=== PATIENT | female | born 1980 | race Caucasian/White ===

== ENCOUNTER → 2019-07-22 | Outpatient (CLI) | payer BC ==
[~2019-07-22] MED LIST: CITA20; CITA20 PO; CYCL10 PO; Celexa10 MG PO; DILT30; DILT30 PO; FAMO20 PO; HYDACE5 PO; HYDMOR4 PO; LEVSOD25; LORA.5 PO; MARIJUANA; METO10 PO; NORT10 PO; Nortriptyline H50 MG PO; OMEP20ER PO; ONDA4ODT MM; ONDA4ODT PO; ONDA8ODT MM; OXYACE5T PO; PROM25 PO; PROM25S PR; SUCR1 PO; TAZORAC TP; TRAM50; TRAM50 PO; VENL37.5 PO; VENL75ER PO
[2019-07-25 15:07] LABS: HPV 16 Negative (Negative); HPV 18 Negative (Negative); HPV OTHER HR TYPES Negative (Negative)
== END | disposition home or self-care (01) ==
LOC: LAB SHORT 15:55 → LAB 15:55
PROVIDERS: Advanced Practice Midwife
DX: Z01.419 Encounter for gynecological examination (general) (routine) without abnormal findings (principal)
CPT/HCPCS: 87624; G0123

== ENCOUNTER 2020-07-26 20:14 | Emergency (ER) | payer BC ==
[~2020-07-26] VITALS: Ht 165.1 cm; Wt 63.5 kg
[2020-07-26 21:23] LABS: BASOPHILS ABSOLUTE AUTO 0.03 K/mm3 (0.00-0.23); BASOPHILS PERCENT AUTO 0 % (0-2); EOSINOPHILS ABSOLUTE AUTO 0.09 K/mm3 (0.00-0.68); EOSINOPHILS PERCENT AUTO 1 % (0-6); Hematocrit 33.6 % (33.0-51.0); Hemoglobin 11.3 g/dL (11.5-16.0); IMMATURE GRAN ABSOLUTE AUTO 0.01 K/mm3 (0.00-0.10); IMMATURE GRAN PERCENT AUTO 0 % (0-1); LYMPHOCYTES ABSOLUTE AUTO 1.35 K/mm3 (0.84-5.20); LYMPHOCYTES PERCENT AUTO 20 % (21-46); MONOCYTES ABSOLUTE AUTO 0.55 K/mm3 (0.16-1.47); MONOCYTES PERCENT AUTO 8 % (4-13); Mean Corpuscular HGB 28.8 pg (26.0-34.0); Mean Corpuscular HGB Conc 33.6 g/dL (31.5-36.5); Mean Corpuscular Volume 86 fL (80-100); Mean Platelet Volume 10.6 fL (9.1-12.4); NEUTROPHILS ABSOLUTE AUTO 4.68 K/mm3 (1.96-9.15); NEUTROPHILS PERCENT AUTO 70 % (41-73); Platelet Count 300 K/mm3 (150-400); RDW Coefficient Variation 12.8 % (11.7-14.2); RDW Standard Deviation 39.6 fL (35.1-46.3); Red Blood Cell Count 3.92 M/mm3 (3.80-5.20); White Blood Cell Count 6.71 K/mm3 (4.00-11.30)
[2020-07-26 21:44] LABS: Alanine Aminotransfer (ALT/SGP 15 U/L (12-78); Albumin/Globulin Ratio 1.2 (0.8-1.8); Alk Phos 61 U/L (50-136); Anion Gap 4 mmol/L (6-16); Aspartate Aminotrans (AST/SGOT 14 U/L (12-37); Bilirubin, Total 0.3 mg/dL (0.1-1.0); Blood Urea Nitrogen 14 mg/dL (8-24); Bun/Creatinine Ratio 18.3 (12.0-20.0); CO2, Blood 27 mmol/L (21-32); Calcium, Blood 8.8 mg/dL (8.5-10.1); Chloride, Blood 106 mmol/L (98-108); Creatinine, Blood 0.77 mg/dL (0.40-1.00); Globulin, Blood 3.3 g/dL (2.2-4.0); Glomerular Filtration Rate >60 (60-); Glucose, Blood 113 mg/dL (70-99); Potassium, Blood 3.5 mmol/L (3.5-5.5); Sodium, Blood 137 mmol/L (136-145); Total Protein, Blood 7.3 g/dL (6.4-8.2); Troponin I <0.015 ng/mL (0.000-0.040)
== END 2020-07-26 22:56 | disposition home or self-care (01) ==
LOC: ER 20:14
PROVIDERS: Physician Assistant
DX: R07.9 Chest pain, unspecified (principal)
CPT/HCPCS: 36415; 71046; 80053; 84484; 85025; 93005; 93010; 99285-25

== ENCOUNTER 2020-08-15 21:16 | Emergency (ER) | payer BC ==
[~2020-08-15] VITALS: Ht 165.1 cm; Wt 63.5 kg
[2020-08-15] MEDS ORDERED: XANAX0.25 MG PO (23:42)
[2020-08-15] MEDS ORDERED: CLOB.05TO (23:42)
[2020-08-15] MEDS ORDERED: METPRE4DP PO (23:48)
[2020-08-15] MEDS ORDERED: IBUP600 PO (23:48)
== END 2020-08-16 00:41 | disposition home or self-care (01) ==
LOC: ER 21:16
DX: M54.12 Radiculopathy, cervical region (principal)
CPT/HCPCS: 93005; 93010; 99283-25

== ENCOUNTER 2021-12-10 06:41 | Inpatient (IN) | payer BC ==
[~2021-12-10] VITALS: Ht 165.1 cm; Wt 65.8 kg
[~2021-12-10 06:41] MED LIST changes: +CLOB.05TO; +IBUP600 PO; +METPRE4DP PO; +PROM12.5S PR; +XANAX0.25 MG PO
[2021-12-10] MEDS ORDERED: ONDA4ODT PO (07:01)
[2021-12-10] MEDS ORDERED: ESCI10 (07:01)
[2021-12-10] MEDS ORDERED: PROM12.5S (07:01)
[2021-12-10 08:51] LABS: Influenza A, PCR NEGATIVE (NEGATIVE); Influenza B, PCR NEGATIVE (NEGATIVE); Resp Syncytial Virus, PCR NEGATIVE (NEGATIVE); SARS-Cov-2 (COVID-19) PCR, MMC NEGATIVE (NEGATIVE)
[2021-12-10 08:56] LABS: BASOPHILS ABSOLUTE AUTO 0.02 K/mm3 (0.00-0.23); BASOPHILS PERCENT AUTO 0 % (0-2); EOSINOPHILS PERCENT AUTO 0 % (0-6); Hematocrit 35.3 % (33.0-51.0); Hemoglobin 11.9 g/dL (11.5-16.0); IMMATURE GRAN ABSOLUTE AUTO 0.07 K/mm3 (0.00-0.10); IMMATURE GRAN PERCENT AUTO 1 % (0-1); LYMPHOCYTES ABSOLUTE AUTO 0.93 K/mm3 (0.84-5.20); LYMPHOCYTES PERCENT AUTO 8 % (21-46); MONOCYTES ABSOLUTE AUTO 0.49 K/mm3 (0.16-1.47); MONOCYTES PERCENT AUTO 4 % (4-13); Mean Corpuscular HGB 28.8 pg (26.0-34.0); Mean Corpuscular HGB Conc 33.7 g/dL (31.5-36.5); Mean Corpuscular Volume 86 fL (80-100); Mean Platelet Volume 10.7 fL (9.1-12.4); NEUTROPHILS ABSOLUTE AUTO 10.21 K/mm3 (1.96-9.15); NEUTROPHILS PERCENT AUTO 87 % (41-73); Platelet Count 347 K/mm3 (150-400); RDW Coefficient Variation 13.1 % (11.7-14.2); RDW Standard Deviation 40.7 fL (35.1-46.3); Red Blood Cell Count 4.13 M/mm3 (3.80-5.20); White Blood Cell Count 11.72 K/mm3 (4.00-11.30)
[2021-12-10 09:15] LABS: Albumin, Blood 4.3 g/dL (3.4-5.0); Albumin/Globulin Ratio 1.2 (0.8-1.8); Bilirubin, Total 0.7 mg/dL (0.1-1.0); Bun/Creatinine Ratio 22.3 (12.0-20.0); Calcium, Blood 9.6 mg/dL (8.5-10.1); Creatinine, Blood 0.72 mg/dL (0.40-1.00); Globulin, Blood 3.5 g/dL (2.2-4.0); Potassium, Blood 2.7 mmol/L (3.5-5.5); Total Protein, Blood 7.8 g/dL (6.4-8.2)
[2021-12-10 13:15] LABS: Calcium, Ionized (POC) 1.03 mmol/L (1.10-1.46); Chloride (POC) 105 mmol/L (98-108); Creatinine (POC) 0.4 mg/dL (0.6-1.0); Glucose (ISTAT POC) 107 mg/dL (70-99); Hemoglobin (POC) 10.5 g/dL (12.0-16.0); Potassium (POC) 3.1 mmol/L (3.5-5.5); Sodium (POC) 140 mmol/L (135-148); Total CO2 (POC) 20 mmol/L (21-32)
[2021-12-10 16:34] LABS: Source, Urine Clean Catch
[2021-12-10 16:40] LABS: Appearance, Urine Clear (Clear); Bilirubin, Urine Neg (Neg); Blood, Urine Neg (Neg); Glucose Qualitative, Urine Neg (Neg); Ketones, Urine 3+ (Neg); Leukocyte Esterase, Urine Neg (Neg); Nitrite, Urine Neg (Neg); Protein, Urine Neg (Neg); Urobilinogen, Urine NORM (Normal)
[2021-12-10 16:44] LABS: Color, Urine Pale Yellow (P-Yellow)
--- NOTE | 2021-12-10 18:41 | NUR ---
REPORT RECEIVED FROM DIMPLE SILVA IN ER. PT ADMITTED TO ROOM 358 AT 1830. PT TRANSPORTED VIA . PT REPORTED SHE STILL FELT NAUSEATED BUT VOMITING CONTROLLED AT THIS TIME. SHE REQUESTED TO WAIT ON TAKING POTASSIUM SUPPLEMENT.PT ORIENTED TO ROOM/CALL LIGHT/FALL PRECAUTIONS. WARM BLANKETS PROVIDED PER REQUEST. STARTED LR PER ORDER.
--- NOTE | 2021-12-10 19:30 | NUR ---
RECEIVED BEDSIDE REPORT. PT LYING ON BED WITH EYES CLOSED, MOTHER AT BEDSIDE. IVF INFUSING. ON RA. NO NEEDS AT THIS TIME. WILL CONTINUE TO PROVIDE CARE T/O SHIFT. CALL LT IN REACH.
--- NOTE | 2021-12-10 21:48 | NUR ---
PT TOLERATED ANTIVERT PO AFTER ZOFRAN IV GIVEN. DID REPORT SOME NAUSEA, UNABLE TO TAKE ORAL POTASSIUM. HOSPITALIST CALLED AND NEW ORDER FOR IV POTASSIUM RECEIVED.
[2021-12-10 22:31] LABS: U Amphetamine Screen Not Detected; U Barbituate Screen Not Detected; U Benzodiazapine Screen Not Detected; U Buprenorphine Screen Not Detected; U Cannabinoids Screen DETECTED; U Cocaine Screen Not Detected; U Methadone Screen Not Detected; U Methamphetamine Screen Not Detected; U Opiates Screen Not Detected; U Oxycodone Screen Not Detected; U Phencyclidine Screen Not Detected; U Propoxyphene Screen Not Detected
--- NOTE | 2021-12-10 22:37 | NUR ---
PT DID NOT TOLERATE PO POTASSIUM. NEW ORDER RECEIVED FOR POTASSIUM CHLORIDE IV. PT TOLERATING INFUSION. CALL LT IN REACH.
--- NOTE | 2021-12-11 00:08 | NUR ---
PT RESTING QUIETLY. IVF INFUSING. CALL LT IN REACH.
--- NOTE | 2021-12-11 01:17 | NUR ---
PT STATES STILL FEELING A LITTLE DIZZY WHEN UP IN ROOM. STATES LEFT EAR STILL PLUGGED UP. MORE NAUSEOUS AFTER GETTING UP TO THE BATHROOM. REGLAN GIVEN IV. WILL REASSESS NAUSEA. IVF INFUSING. CALL LT IN REACH.
--- NOTE | 2021-12-11 02:02 | NUR ---
PT RESTING QUIETLY. IVF INFUSING. CALL LT IN REACH.
--- NOTE | 2021-12-11 02:53 | NUR ---
MEDICATED PT FOR NAUSEA AFTER BEING UP IN ROOM. NO OTHER NEEDS AT THIS TIME. CALL LT IN REACH.
--- NOTE | 2021-12-11 04:22 | NUR ---
PT RESTING. IVF INFUSING. NO NEEDS. CALL LT IN REACH.
--- NOTE | 2021-12-11 04:35 | NUR ---
SHIFT SUMMARY: MEDICATED PT X 3 FOR NAUSEA. NO EMESIS THIS SHIFT. NPO. KRIDER OF 40 MEQ GIVEN. LR INFUSING AT 100 MLS/HR, WILL RECEIVE ONE MORE BAG THEN SALINE LOCK. NO COMPLAINTS OF PAIN. A/O. INDEP IN RM. ON RA. WILL CONTINUE TO PROVIDE CARE UNTIL SHIFT REPORT.
[2021-12-11 04:36] LABS: BASOPHILS ABSOLUTE AUTO 0.01 K/mm3 (0.00-0.23); BASOPHILS PERCENT AUTO 0 % (0-2); EOSINOPHILS PERCENT AUTO 0 % (0-6); Hematocrit 32.1 % (33.0-51.0); IMMATURE GRAN ABSOLUTE AUTO 0.05 K/mm3 (0.00-0.10); IMMATURE GRAN PERCENT AUTO 1 % (0-1); LYMPHOCYTES ABSOLUTE AUTO 1.18 K/mm3 (0.84-5.20); LYMPHOCYTES PERCENT AUTO 12 % (21-46); MONOCYTES ABSOLUTE AUTO 0.71 K/mm3 (0.16-1.47); MONOCYTES PERCENT AUTO 7 % (4-13); Mean Corpuscular HGB 29.1 pg (26.0-34.0); Mean Corpuscular HGB Conc 34.3 g/dL (31.5-36.5); Mean Corpuscular Volume 85 fL (80-100); Mean Platelet Volume 10.5 fL (9.1-12.4); NEUTROPHILS ABSOLUTE AUTO 8.33 K/mm3 (1.96-9.15); NEUTROPHILS PERCENT AUTO 81 % (41-73); Platelet Count 293 K/mm3 (150-400); RDW Coefficient Variation 12.8 % (11.7-14.2); RDW Standard Deviation 39.2 fL (35.1-46.3); Red Blood Cell Count 3.78 M/mm3 (3.80-5.20); White Blood Cell Count 10.28 K/mm3 (4.00-11.30)
[2021-12-11 04:58] LABS: Albumin, Blood 3.4 g/dL (3.4-5.0); Bilirubin, Total 0.7 mg/dL (0.1-1.0); Bun/Creatinine Ratio 16.4 (12.0-20.0); Calcium, Blood 8.1 mg/dL (8.5-10.1); Creatinine, Blood 0.49 mg/dL (0.40-1.00); Globulin, Blood 3.4 g/dL (2.2-4.0); Total Protein, Blood 6.8 g/dL (6.4-8.2)
--- NOTE | 2021-12-11 05:32 | NUR ---
SECOND BAG OF LR HUNG AT 100 MLS/HR.
--- NOTE | 2021-12-11 16:01 | NUR ---
SHIFT SUMMARY PT RESTING QUIETLY DURING SHIFT REPORT, IVF'S INFUSING PER EMAR. PT MEDICATED ON NOC SHIFT FOR C/O NAUSEA AND L EAR BEING PLUGGED. K+ LEVEL LOW THIS AM; SEE CHART. PT UNABLE TO TOLERATE PO; IV KCL ORDERED AND STARTED. DR HERNÁNDEZ AND DR MARQUIS BOTH HERE TO SEE PT. NEW ORDERS PLACED. EKG DONE AND PT TAKEN DOWN FOR HEAD CT. IVF'S AND KCL STOPPED BRIEFLY; RESTARTED WHEN PT RETURNED. IV SITE SOON STARTED LEAKING AFTER THAT. NEW IV PLACED TO AND IVF'S RUNNING CONCURRENTLY WITH KCL, BUT PT UNABLE TO TOLERATE EVEN AT REDUCED RATE. DR MARQUIS NOTIFIED AND NEW ORDERS PLACED. PT ONLY ABLE TO TOLERATE 1/2 OF PO K+ ORDERED; SEE EMAR. DR MARQUIS NOTIFIED AGAIN. 2ND BAG OF IV KCL STARTED AT REDUCED RATE, CONCURRENTLY WITH IVF'S. PT HAS BEEN UP TO BTHRM INDEPENDENTLY AND WITH SBA NEEDED. MEDICATED FOR C/O NAUSEA X1 TO PRESENT. PT'S MOM AT BS. TOLERATED SIPS OF ICE WATER. RESTING QUIETLY AT THIS TIME. CALL LT IN REACH.
[2021-12-12 04:49] LABS: Hematocrit 35.2 % (33.0-51.0); Hemoglobin 12.4 g/dL (11.5-16.0); Mean Corpuscular HGB 29.3 pg (26.0-34.0); Mean Corpuscular HGB Conc 35.2 g/dL (31.5-36.5); Mean Corpuscular Volume 83 fL (80-100); Mean Platelet Volume 10.7 fL (9.1-12.4); Platelet Count 343 K/mm3 (150-400); RDW Coefficient Variation 12.5 % (11.7-14.2); RDW Standard Deviation 38.2 fL (35.1-46.3); Red Blood Cell Count 4.23 M/mm3 (3.80-5.20); White Blood Cell Count 9.79 K/mm3 (4.00-11.30)
[2021-12-12 05:19] LABS: Bun/Creatinine Ratio 18.2 (12.0-20.0); Calcium, Blood 9.1 mg/dL (8.5-10.1); Creatinine, Blood 0.5 mg/dL (0.40-1.00); Potassium, Blood 3.1 mmol/L (3.5-5.5)
--- NOTE | 2021-12-12 06:22 | NUR ---
NOC SHIFT SUMMARY PT ADMITTED FOR INTRACTABLE NAUSEA/VOMITING. NPO, YET HAD AN EPISODE OF EMESIS OVERNIGHT. MECLIZINE INEFFECTIVE IN PREVENTING DIZZINESS. EAR STILL "PLUGGED UP", WITH COMPLETE LOSS OF HEARING. BOTH PATIENT AND MOTHER (PRESENT AT BEDSIDE) VOICED FRUSTRATION REGARDING FEELING IF "NO ONE IS DOING ANYTHING ABOUT THE EAR", WHICH THEY FEEL IS PROBABLE ROOT CAUSE OF ALL ISSUES. ANTIEMETICS PROVIDED WHENEVER POSSIBLE.
--- NOTE | 2021-12-12 17:52 | NUR ---
SHIFT SUMMARY PT AWAKE AND RESTING QUIETLY AT START OF SHIFT. IVF'S INFUSING. IV KCL ORDERED AFTER LABS RETURNED AND STARTED AT REDUCED RATE D/T PT INTOLERANCE. PT ABLE TO START TOLERATING PO INTAKE TODAY. STARTING WITH ICE WATER AND APPLE JUICE. PT LATER HAVING SOUP, BROTH AND JELLO. FAMILY IN RM ALL NIGHT AND THRU OUT THE DAY, BRINGING IN FOOD AND DRINK THAT PT COULD TOLERATE. NAUEA MEDICATION ADJUSTED A COUPLE OF TIMES TODAY AND SEEMS TO BE HELPING SOME. DRY HEAVES X1 TODAY, TRYING TO TAKE MEDS ON EMPTY STOMACH. DOING BETTER THIS AFTERNOON WITH BEING ABLE TO TAKE IN SOME THINGS. UP IN RM AND TO BTHRM INDEPENDENTLY. ABLE TO WALK IN HALLS A BIT WITH HER DAD THIS AFTERNOON. DECLINED TO GO HOME TODAY. POSSIBLE D/C TOMORROW. CALL LT IN REACH. ABLE TO MAKE NEEDS KNOWN.
[2021-12-13 05:52] LABS: Bun/Creatinine Ratio 22.2 (12.0-20.0); Creatinine, Blood 0.63 mg/dL (0.40-1.00); Potassium, Blood 2.6 mmol/L (3.5-5.5)
--- NOTE | 2021-12-13 05:52 | NUR ---
NOC SHIFT SUMMARY PT WAS INITIALLY PROGRESSING POSITIVELY AT START OF SHIFT; TOLERATING SMALL PORTIONS OF FOOD. UNFORTUNATELY, THAT PROGRESSION WAS SHORTLIVED. PT AWOKE DURING THE NIGHT WITH C/O SEVERE NAUSEA/DIZZINESS. MOTHER WAS AGAIN AT BEDSIDE OVERNIGHT. SHE EXPRESSES CONCERN REGARDING PROLONGED MALNUTRITION, WELL HYPOKALEMIA. SUSPECT THAT DISCUSSIONS REGARDING PROBABLE D/C WILL POSSIBLY BE MET WITH CONTENTION DUE TO ABOVE MENTIONED CONCERNS.
--- NOTE | 2021-12-13 18:15 | NUR ---
SHIFT SUMMARY: PATIENT A&OX4. PLEASANT AND COOPERATIVE WITH CARE. LUNGS CLEAR T/O. RA WITH SPO2 RANGES FROM 94-99%. REPORTS OF NAUSEA BUT DENIES OF VOMITING T/O THE DAY. PATIENT STILL NOT GETTING ADEQUATE INTAKE DUE TO NAUSEOUS. RECIEVED SCHEDULED REGLAN PER EMAR. POTASSIUM IS IMPROVING FROM 2.6 THIS AM TO 3.4 LAB DRAWN RESULT AT 1432. PATIENT RECIEVED MULTIPLE DOSE OF IV POTASSIUM THIS SHIFT. PATIENT REPORTS STILL NOT ABLE TO HEAR ON HER L EAR AND HAVING NUMBNESS BUT NO TIGNLING AROUND THE SITE. VITAL SIGNS REVIEWED. AMBULATES IN ROOM INDEPENDENTLY. USES CALL LIGHT APPROPRIATELY. BED IN LOWEST POSITION, LOCKED AND CALL LIGHT WITHIN REACH.
[2021-12-14 06:00] LABS: Albumin, Blood 3.7 g/dL (3.4-5.0); Anion Gap 7 mmol/L (6-16); Blood Urea Nitrogen 8 mg/dL (8-24); Bun/Creatinine Ratio 14.4 (12.0-20.0); CO2, Blood 28 mmol/L (21-32); Calcium, Blood 8.7 mg/dL (8.5-10.1); Chloride, Blood 101 mmol/L (98-108); Creatinine, Blood 0.56 mg/dL (0.40-1.00); Glomerular Filtration Rate 119 (60-); Glucose, Blood 99 mg/dL (70-99); Magnesium, Blood 1.8 mg/dL (1.6-2.4); Phosphorus, Blood 3.4 mg/dL (2.5-4.9); Potassium, Blood 3.5 mmol/L (3.5-5.5); Sodium, Blood 136 mmol/L (136-145)
--- NOTE | 2021-12-14 06:17 | NUR ---
SUMMARY: PT A/OX4, CALLS APPROPRIATELY TO SPECIFY NEEDS AND IS PLEASANT AND COOPERATIVE W/CARE. SHE'S SBA OOB D/T CONTINUED DIZZINESS, OCC UNSTEADY GAIT AND ACCOMPANIED NAUSEA. PT ALSO CONT'S TO REPORT LACK OF HEARING TO L.EAR AND NUMBNESS/TINGLING TO L.SIDE OF FACE AROUND EAR. SCHEDULED AUGMENTIN, ANTIVERT, REGLAN AND PRN ZOFRAN RECIEVED. PT ALSO REQUESTED BENEDRYL PRN FOR DIFFICULTY SLEEPING R/T NAGGING NAUSEA W/O EMESIS, X1 ORAL ELIXIR RX'D AND RECIEVED FOR GOOD EFFECT. LR INFUSION COMPLETER PER EMAR AND IV WAS SL'T. NO ACCUTE CHANGES, VSS/AFEBRILE. WCTM AND REPORT TO DAY RN.
[2021-12-14] MEDS ORDERED: AMOCLA875 PO (12:25)
[2021-12-14] MEDS ORDERED: METO10 PO (12:26)
--- NOTE | 2021-12-14 13:02 | NUR ---
SUMMARY: PATIENT A&OX4. AMBULATES IN ROOM AND AROUND THE UNIT INDEPENDENTLY. PATIENT CONTINUE TO REPORT HAVING NAUSEOUS, BUT NO VOMITING. RECIEVED SCHEDULED REGLAN PER EMAR. PATIENT REPORT SHE ATE ALMOST A WHOLE CUP OF YOGURT FOR BREAKFAST. DENIES SOB. DENIES CP/CHEST DISCOMFORT. NO ACUTES CHANGES THIS SHIFT. VITAL SIGNS REVIEWED. PATIENT DISCHARGE HOME. DISCHARGE INSTRUCTIONS PACKET GIVEN TO PATIENT. EDUCATE PATIENT REGARDING DX, S/S, TX, AND NEW PRESCRIBED MEDICATION. PATIENT STATED UNDERSTANDING AND NO FURTHER QUESTIONS. RX WAS FAXED TO PATIENT PREFERRED PHARMACY. IV DC'D. ALL PATIENT PERSONAL BELONGINGS WERE SENT HOME WITH THE PATIENT. PATIENT WAS TRANSPORTED VIA WHEELCHAIR BY [employer] OPERATOR STAFF TO PATIENT MOM'S PRIVATE VEHICLE.
== END 2021-12-14 13:10 | disposition home or self-care (01) | DRG 153 ==
LOC: ER 06:41 → ERHOLD 06:42 → ER 13:57 → MEDS 18:32
PROVIDERS: Emergency Medicine; Family Medicine; Family Medicine Adult Medicine; ADMIT Hospitalist
DX: H65.192 Other acute nonsuppurative otitis media, left ear (principal); H81.12 Benign paroxysmal vertigo, left ear; Z20.822 Contact with and (suspected) exposure to COVID-19; F41.9 Anxiety disorder, unspecified; E87.6 Hypokalemia; D72.829 Elevated white blood cell count, unspecified; E86.0 Dehydration; R00.1 Bradycardia, unspecified; R94.31 Abnormal electrocardiogram [ECG] [EKG]; D89.89 Other specified disorders involving the immune mechanism, not elsewhere classified; H90.42 Sensorineural hearing loss, unilateral, left ear, with unrestricted hearing on the contralateral side; R11.15 Cyclical vomiting syndrome unrelated to migraine; F12.988 Cannabis use, unspecified with other cannabis-induced disorder
CPT/HCPCS: 0241U; 36415; 70450; 80047; 80048; 80053; 80069; 81003; 83690; 83735; 84132; 85014; 85025; 85027; 93005; 93010; 96361; 96365; 96366; 96372; 96375; 96376; 99285-25; A9270; G0378; J1200; J1630; J1650; J2405; J2550; J2765; J3475; J3480; J7030; J7050; J7120; J7512

== ENCOUNTER 2021-12-22 23:21 | Emergency (ER) | payer BC ==
[~2021-12-22] VITALS: Ht 165.1 cm; Wt 63.5 kg
[~2021-12-22 23:21] MED LIST changes: +AMOCLA875 PO; +ESCI10; +PROM12.5S
[2021-12-23 00:37] LABS: BASOPHILS ABSOLUTE AUTO 0.02 K/mm3 (0.00-0.23); BASOPHILS PERCENT AUTO 0 % (0-2); EOSINOPHILS PERCENT AUTO 0 % (0-6); Hematocrit 36.8 % (33.0-51.0); Hemoglobin 12.6 g/dL (11.5-16.0); IMMATURE GRAN ABSOLUTE AUTO 0.06 K/mm3 (0.00-0.10); IMMATURE GRAN PERCENT AUTO 1 % (0-1); LYMPHOCYTES ABSOLUTE AUTO 0.77 K/mm3 (0.84-5.20); LYMPHOCYTES PERCENT AUTO 7 % (21-46); MONOCYTES ABSOLUTE AUTO 0.53 K/mm3 (0.16-1.47); MONOCYTES PERCENT AUTO 5 % (4-13); Mean Corpuscular HGB 28.8 pg (26.0-34.0); Mean Corpuscular HGB Conc 34.2 g/dL (31.5-36.5); Mean Corpuscular Volume 84 fL (80-100); Mean Platelet Volume 11.1 fL (9.1-12.4); NEUTROPHILS ABSOLUTE AUTO 10.26 K/mm3 (1.96-9.15); NEUTROPHILS PERCENT AUTO 88 % (41-73); Platelet Count 398 K/mm3 (150-400); RDW Coefficient Variation 12.5 % (11.7-14.2); RDW Standard Deviation 37.5 fL (35.1-46.3); Red Blood Cell Count 4.38 M/mm3 (3.80-5.20); White Blood Cell Count 11.64 K/mm3 (4.00-11.30)
[2021-12-23 00:50] LABS: Albumin, Blood 4.1 g/dL (3.4-5.0); Albumin/Globulin Ratio 1.1 (0.8-1.8); Bilirubin, Total 0.4 mg/dL (0.1-1.0); Bun/Creatinine Ratio 23.2 (12.0-20.0); Calcium, Blood 9.1 mg/dL (8.5-10.1); Creatinine, Blood 0.6 mg/dL (0.40-1.00); Globulin, Blood 3.8 g/dL (2.2-4.0); Potassium, Blood 3.3 mmol/L (3.5-5.5); Total Protein, Blood 7.9 g/dL (6.4-8.2)
[2021-12-24] MEDS ORDERED: PROM12.5S PR (06:29)
[2021-12-24] MEDS ORDERED: MOTION RELIEF25 MG PO (06:30)
[2021-12-24] MEDS ORDERED: ALPR.25 PO (06:30)
== END 2021-12-23 03:35 | disposition home or self-care (01) ==
LOC: ER 23:21
PROVIDERS: Emergency Medicine
DX: R11.2 Nausea with vomiting, unspecified (principal)
CPT/HCPCS: 80053; 85025; 96374; 96375; 99284-25; J1200; J1790; J2405; J7030

== ENCOUNTER 2021-12-24 05:15 | Emergency (ER) | payer BC ==
[~2021-12-24] VITALS: Ht 165.1 cm; Wt 61.2 kg
[2021-12-24 06:21] LABS: BASOPHILS ABSOLUTE AUTO 0.02 K/mm3 (0.00-0.23); BASOPHILS PERCENT AUTO 0 % (0-2); EOSINOPHILS PERCENT AUTO 0 % (0-6); Hematocrit 36.7 % (33.0-51.0); Hemoglobin 12.9 g/dL (11.5-16.0); IMMATURE GRAN ABSOLUTE AUTO 0.03 K/mm3 (0.00-0.10); IMMATURE GRAN PERCENT AUTO 0 % (0-1); LYMPHOCYTES ABSOLUTE AUTO 1.69 K/mm3 (0.84-5.20); LYMPHOCYTES PERCENT AUTO 17 % (21-46); MONOCYTES ABSOLUTE AUTO 0.77 K/mm3 (0.16-1.47); MONOCYTES PERCENT AUTO 8 % (4-13); Mean Corpuscular HGB 29.3 pg (26.0-34.0); Mean Corpuscular HGB Conc 35.1 g/dL (31.5-36.5); Mean Corpuscular Volume 83 fL (80-100); Mean Platelet Volume 10.7 fL (9.1-12.4); NEUTROPHILS ABSOLUTE AUTO 7.57 K/mm3 (1.96-9.15); NEUTROPHILS PERCENT AUTO 75 % (41-73); Platelet Count 392 K/mm3 (150-400); RDW Coefficient Variation 12.8 % (11.7-14.2); RDW Standard Deviation 38.8 fL (35.1-46.3); Red Blood Cell Count 4.41 M/mm3 (3.80-5.20); White Blood Cell Count 10.08 K/mm3 (4.00-11.30)
[2021-12-24] MEDS ORDERED: PROM12.5S PR (06:29)
[2021-12-24] MEDS ORDERED: MOTION RELIEF25 MG PO (06:30)
[2021-12-24] MEDS ORDERED: ALPR.25 PO (06:30)
[2021-12-24 06:42] LABS: Albumin, Blood 4.2 g/dL (3.4-5.0); Albumin/Globulin Ratio 1.2 (0.8-1.8); Bilirubin, Total 0.5 mg/dL (0.1-1.0); Bun/Creatinine Ratio 14.3 (12.0-20.0); Calcium, Blood 9.9 mg/dL (8.5-10.1); Creatinine, Blood 0.77 mg/dL (0.40-1.00); Globulin, Blood 3.6 g/dL (2.2-4.0); Potassium, Blood 3.2 mmol/L (3.5-5.5); Total Protein, Blood 7.8 g/dL (6.4-8.2)
[2021-12-24 08:08] LABS: Source, Urine Clean Catch
[2021-12-24 08:12] LABS: Appearance, Urine Clear (Clear); Bilirubin, Urine Neg (Neg); Blood, Urine Neg (Neg); Color, Urine Pale Yellow (P-Yellow); Glucose Qualitative, Urine Neg (Neg); Ketones, Urine 2+ (Neg); Leukocyte Esterase, Urine Neg (Neg); Nitrite, Urine Neg (Neg); Protein, Urine Neg (Neg); Specific Gravity, Urine 1.015 (1.003-1.022); Urobilinogen, Urine NORM (Normal)
== END 2021-12-24 10:31 | disposition home or self-care (01) ==
LOC: ER 05:15
PROVIDERS: Emergency Medicine
DX: E87.6 Hypokalemia (principal); R11.2 Nausea with vomiting, unspecified; K21.9 Gastro-esophageal reflux disease without esophagitis; Z79.899 Other long term (current) drug therapy
CPT/HCPCS: 36415; 80053; 81003; 81025; 83690; 84703; 85025; 96372-59; 96374; 96375; 99284-25; J1200; J2765; J2930; J7030

== ENCOUNTER 2022-03-31 10:05 | Inpatient (IN) | payer BC ==
[~2022-03-31] VITALS: Ht 165.1 cm; Wt 65.8 kg
[~2022-03-31 10:05] MED LIST changes: +ALPR.25 PO; +MOTION RELIEF25 MG PO
[2022-03-31 11:02] LABS: BASOPHILS ABSOLUTE AUTO 0.02 K/mm3 (0.00-0.23); BASOPHILS PERCENT AUTO 0 % (0-2); EOSINOPHILS PERCENT AUTO 0 % (0-6); Hematocrit 38.3 % (33.0-51.0); Hemoglobin 13.5 g/dL (11.5-16.0); IMMATURE GRAN ABSOLUTE AUTO 0.04 K/mm3 (0.00-0.10); IMMATURE GRAN PERCENT AUTO 0 % (0-1); LYMPHOCYTES ABSOLUTE AUTO 0.71 K/mm3 (0.84-5.20); LYMPHOCYTES PERCENT AUTO 7 % (21-46); MONOCYTES ABSOLUTE AUTO 0.21 K/mm3 (0.16-1.47); MONOCYTES PERCENT AUTO 2 % (4-13); Mean Corpuscular HGB 29.3 pg (26.0-34.0); Mean Corpuscular HGB Conc 35.2 g/dL (31.5-36.5); Mean Corpuscular Volume 83 fL (80-100); Mean Platelet Volume 9.9 fL (9.1-12.4); NEUTROPHILS ABSOLUTE AUTO 9.69 K/mm3 (1.96-9.15); NEUTROPHILS PERCENT AUTO 91 % (41-73); Platelet Count 476 K/mm3 (150-400); RDW Coefficient Variation 12.5 % (11.7-14.2); RDW Standard Deviation 37.8 fL (35.1-46.3); Red Blood Cell Count 4.61 M/mm3 (3.80-5.20); White Blood Cell Count 10.67 K/mm3 (4.00-11.30)
[2022-03-31 11:25] LABS: Albumin, Blood 4.6 g/dL (3.4-5.0); Albumin/Globulin Ratio 1.1 (0.8-1.8); Bilirubin, Total 0.7 mg/dL (0.1-1.0); Bun/Creatinine Ratio 22.8 (12.0-20.0); Calcium, Blood 9.5 mg/dL (8.5-10.1); Creatinine, Blood 0.66 mg/dL (0.40-1.00); Globulin, Blood 4.1 g/dL (2.2-4.0); Potassium, Blood 3.3 mmol/L (3.5-5.5); Total Protein, Blood 8.7 g/dL (6.4-8.2)
--- NOTE | 2022-03-31 19:23 | NUR ---
PT ALERT RESTING IN BED. NO S/S OF ACUTE DISTRESS, SAFETY MEASURES IN PLACE. REPORT GIVEN TO ON COMING NURSE.
--- NOTE | 2022-04-01 05:17 | NUR ---
PATIENT MEDICATED FOR ANXIETY ONCE PER EMAR AND TWICE FOR N/V. SLEPT THROUGH SHIFT. MOTHER AT BEDSIDE
[2022-04-01 05:34] LABS: Bun/Creatinine Ratio 10.1 (12.0-20.0); Calcium, Blood 8.5 mg/dL (8.5-10.1); Creatinine, Blood 0.59 mg/dL (0.40-1.00); Potassium, Blood 3.1 mmol/L (3.5-5.5)
--- NOTE | 2022-04-01 17:48 | NUR ---
PT A&O X4, ANXIOUS, NAUSEA, WITH OCCIANIONAL VOMITING. PT PLEASANT AND COOPERATIVE. PT INFUSING D51/2NS 125ML/HR IV 3 OUT 3, TOLERATING WELL. DR. CURRY ORDERED STAT POTASSIUM LAB DRAW AT 1600. PT POTASSIUM 3.1, NEW ORDERS POTASSIUM 20 MEQ/ 100ML 50ML/HR AND D5W1/2NS 75ML/HR. PT RECEVIED IV MEDICATION FOR NAUSEA ON REASSESSMENT PT HAD RELIEF. PT HAS INCREASED NAUSEA WITH MOVEMENT AND DIFFCUILTY KEEPING LIQUIDS DOWN. PT STATED FEELING WEAK AND ANXIOUS. PT IN BED WITH CALL LIGHT WITHIN REACH.
[2022-04-02 05:09] LABS: BASOPHILS ABSOLUTE AUTO 0.05 K/mm3 (0.00-0.23); BASOPHILS PERCENT AUTO 1 % (0-2); EOSINOPHILS ABSOLUTE AUTO 0.01 K/mm3 (0.00-0.68); EOSINOPHILS PERCENT AUTO 0 % (0-6); Hematocrit 39.4 % (33.0-51.0); Hemoglobin 13.5 g/dL (11.5-16.0); IMMATURE GRAN ABSOLUTE AUTO 0.03 K/mm3 (0.00-0.10); IMMATURE GRAN PERCENT AUTO 0 % (0-1); LYMPHOCYTES ABSOLUTE AUTO 1.58 K/mm3 (0.84-5.20); LYMPHOCYTES PERCENT AUTO 15 % (21-46); MONOCYTES ABSOLUTE AUTO 0.81 K/mm3 (0.16-1.47); MONOCYTES PERCENT AUTO 8 % (4-13); Mean Corpuscular HGB 28.6 pg (26.0-34.0); Mean Corpuscular HGB Conc 34.3 g/dL (31.5-36.5); Mean Corpuscular Volume 84 fL (80-100); Mean Platelet Volume 10.1 fL (9.1-12.4); NEUTROPHILS ABSOLUTE AUTO 7.95 K/mm3 (1.96-9.15); NEUTROPHILS PERCENT AUTO 76 % (41-73); Platelet Count 432 K/mm3 (150-400); RDW Coefficient Variation 12.3 % (11.7-14.2); RDW Standard Deviation 37.8 fL (35.1-46.3); Red Blood Cell Count 4.72 M/mm3 (3.80-5.20); White Blood Cell Count 10.43 K/mm3 (4.00-11.30)
[2022-04-02 05:34] LABS: Albumin, Blood 3.7 g/dL (3.4-5.0); Anion Gap 8 mmol/L (6-16); Blood Urea Nitrogen 9 mg/dL (8-24); Bun/Creatinine Ratio 14.4 (12.0-20.0); CO2, Blood 24 mmol/L (21-32); Calcium, Blood 8.9 mg/dL (8.5-10.1); Chloride, Blood 105 mmol/L (98-108); Creatinine, Blood 0.62 mg/dL (0.40-1.00); Glomerular Filtration Rate 115 (60-); Glucose, Blood 119 mg/dL (70-99); Phosphorus, Blood 3.6 mg/dL (2.5-4.9); Potassium, Blood 3.2 mmol/L (3.5-5.5); Sodium, Blood 137 mmol/L (136-145)
--- NOTE | 2022-04-02 05:54 | NUR ---
BP 167/109 AND IV APRESOLINE 10 MG GIVEN FOR SBP >160 BP 136/77 ON RECHECK
--- NOTE | 2022-04-02 05:55 | NUR ---
SHIFT SUMMARY PATIENT ALERT AND ORIENTED WITH SBA TO BSC. ANXIOUS X 2 AND IV ATIVAN GIVEN PER EMAR. REPORTED N/V X 2 AND IV PHENERGAN 25 MG GIVEN. NEW PIV PLACED AND FINISHED K+ PB. D5W 1/2 NS KCL INFUSING AT 75 mL/HR. DENIES PAIN AND SOB. VSS/LOW GRADE TEMP 99.5. HYPERTENSIVE AND IV APRESOLINE 10 MG GIVEN (SEE NOTE) WITH GOOD EFFECT. ON TELEMETRY NSR 96. SLEPT ON/OFF T/O SHIFT. CALL LIGHT IN REACH. BED IN LOWEST POSITION. WILL CONTINUE TO MONITOR UNTIL DAY SHIFT NURSE ASSUMES CARE.
--- NOTE | 2022-04-02 11:32 | NUR ---
pt laying in bed sleepy, asking for nausia meds, states she has a lot of discomfort in her abd, from the nausia, speaks in a whisper, a/ox3, pleasant and cooperative with care, follows commands well, denies pain, just the nausia discomfort, lungs are clear t/o, resp even and unlabored, no cough noted, hrr, tele in place running sr per monitor, see strip, no edema noted, ppp+2, cap refill <3sec, vs stable, afebrile, ivx2 to r and l ac, one on left stings, will remove, btx4, abd flat soft nontender, voids without diff, skin c/w/d, maew, louise, call light in reach.
--- NOTE | 2022-04-02 18:13 | NUR ---
pt family has been in to see her, she sleeps when not in room, asking for the phenergan and ativan together, explained reason why to alternate. still not tolerating liquid, no further changes this shift, call light in reach.
[2022-04-03 06:05] LABS: Bun/Creatinine Ratio 12.2 (12.0-20.0); Calcium, Blood 8.6 mg/dL (8.5-10.1); Creatinine, Blood 0.57 mg/dL (0.40-1.00); Potassium, Blood 3.5 mmol/L (3.5-5.5)
--- NOTE | 2022-04-03 06:28 | NUR ---
PATIENT ALERT AND ORIENTED BUT LETHARGIC FROM MEDICATION, SR ON TELE, 0500 EKG COMPLETED AND ON CHART, ROOM AIR, INSERTED TWO ADDITION PIV'S DUE TO PAIN AND LEAKING, 22RAC & 20RH W/ MAINT FLUIDS RUNNING AT 150ML/HR, POTASSIUM WNL THIS AM LAB DRAW 3.5, UP TO BEDSIDE COMMODE. NO EVENTS OVERNIGHT
--- NOTE | 2022-04-03 17:55 | NUR ---
SHIFT SUMMARY PT A&O X 4. VSS. MEDICATED TODAY FOR C/O NAUSEA WITH NO VOMITING & WITH SCHEDULED PO ATIVAN PER EMAR. PT IS NOT EATING, NOT MOVING MUCH. C/O SHE BEGINS TO FEEL NAUSEATED AND SLIGHTLY DIZZY WITH MOVEMENT. POTASSIUM TODAY WAS 3.5, D5 1/2 NS WITH 20 K CONTINUES TO INFUSE. IS PLEASANT & COOPERATIVE WITH ALL CARE. IS ON TELE WHICH SHOWS A PROLONGED QT. EKG ON CHART SHOWING SOME IMPROVEMENT IN INTERVAL, IS OTHERWISE IN NSR WITH NO ECTOPY.
--- NOTE | 2022-04-04 04:32 | NUR ---
SHIFT SUMMARY PATIENT HAD NO ACUTE CHANGES OBSERVED. ALERT ORIENTED AND INDEPENDENT IN ROOM. REPORTED NAUSEA X ONE AND IV PHENERGAN GIVEN PER EMAR. PIVS REMAIN INTACT. D5W1/2NS KCL 20 mEq INFUSING AT 125 mL/HR. DENIES PAIN AND SOB. SCHEDULE PO ATIVAN. PATIENT SLEPT MOST OF NIGHT. CALL LIGHT IN REACH. BED IN LOWEST POSITION. WILL CONTINUE TO MONITOR UNTIL DAY SHIFT NURSE ASSUMES CARE.
--- NOTE | 2022-04-04 06:01 | NUR ---
PATIENT REPORTS NEW ORDER OF IV PEPCID 20 MG WORKED WELL. REPORTED IT REDUCED HER BURBING WHICH WAS MAKING HER NAUSEOUS. WCTM
[2022-04-04] MEDS ORDERED: Ativan1 MG PO (11:34)
[2022-04-04] MEDS ORDERED: PROM12.5S PR (11:35)
[2022-04-04] MEDS ORDERED: POTA10T PO (11:35)
[2022-04-04] MEDS ORDERED: FAMO20 PO (11:35)
--- NOTE | 2022-04-04 12:37 | NUR ---
DISCHARGE PATIENT AMBULATED TO PRIVATE VEHICLE PER PATIENT PREFERENCE. DISCHARGE INSTRUCTIONS EXPLAINED TO PATIENT. PATIENT STATED UNDERSTANDING. PACKET SENT WITH PATIENT. BELONGINGS SENT WITH PATIENT. IV REMOVED WITHOUT DIFFICULTY. TELE REMOVED WITHOUT DIFFICULTY. MEDICATIONS TO FAXED PREFERRED PHARMACY. PATIENT TO SCHEDULE FOLLOW UP APPOINTMENT WITH PCP.
== END 2022-04-04 12:18 | disposition home or self-care (01) | DRG 395 ==
LOC: ER 10:05 → MEDS 10:06
PROVIDERS: Family Medicine; Internal Medicine; Physician Assistant; ADMIT Internal Medicine
DX: R11.15 Cyclical vomiting syndrome unrelated to migraine (principal); E87.6 Hypokalemia; R94.31 Abnormal electrocardiogram [ECG] [EKG]; L40.9 Psoriasis, unspecified; E11.65 Type 2 diabetes mellitus with hyperglycemia; E88.81 Metabolic syndrome and other insulin resistance; F12.10 Cannabis abuse, uncomplicated; D75.838 Other thrombocytosis; F41.9 Anxiety disorder, unspecified; K21.9 Gastro-esophageal reflux disease without esophagitis; L65.9 Nonscarring hair loss, unspecified; H91.22 Sudden idiopathic hearing loss, left ear; I10 Essential (primary) hypertension; E86.0 Dehydration; Z79.899 Other long term (current) drug therapy; Z98.890 Other specified postprocedural states
CPT/HCPCS: 36415; 80048; 80053; 80069; 83690; 83735; 84132; 84703; 85025; 93005; 93010; 96361; 96365; 96366; 96367; 96372; 96375; 96376; 99285-25; A9270; G0378; J0360; J1650; J1790; J1885; J2060; J2405; J2550; J3475; J3480; J7030